=== PATIENT | female | born 2000 | race Caucasian/White ===

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

== ENCOUNTER 2022-01-10 22:23 | Observation (INO) | payer MEDICAID ==
[~2022-01-10] VITALS: Ht 155 cm; Wt 54.5 kg
[~2022-01-10 22:23] MED LIST changes: -DCS100C PO; +DOCU-239 PO
--- NOTE | 2022-01-10 22:58 | ED Abdominal Pain ---
General Chief Complaint: Abdominal/GI Problems Stated Complaint: R SIDE ABD PAIN,TROUBLE URINATING,COUGH Nursing Triage Note: PT AMB TO RM 5 WITH C/O RLQ PAIN THAT RADIATES TO HER BACK AND RIB AREA THAT HAS BEEN GOING ON FOR ABOUT 1 WEEK. PT ALSO STATES SHE HAS BEEN URINATING MORE FREQUENTLY ALSO Source of Information: Patient, Old Records Exam Limitations: No Limitations History of Present Illness Date Seen by Provider: Jan 10, 2022 Time Seen by Provider: 22:28 Initial Comments This 21-year-old young lady presents to the emergency room with right-sided abdominal and flank pain worsening over 7 to 10 days. Pain originated just to the right of the umbilicus and has progressed to encompass all of her right abdomen. She reports urinary frequency without dysuria or change in quality of urine. She states her pain was "13" on a 10 point pain scale earlier today. On exam she has a positive Rovsing sign and involuntary guarding. She denies any fever, nausea, vomiting, or vaginal symptoms. She is not sexually active and has an IUD. She reports constipation earlier in the week and diarrhea today. She reports pain with movement and coughing. She was seen in this ER a month ago and was advised to follow-up with her women's health provider to have her IUD evaluated. She reports following up with Dr. WALKER's office and having a normal assessment of the IUD. She reports having an abnormal unintended weight loss of 35 pounds over the last 6 weeks. She is currently under work-up for this and is expecting results from labs at Dr. WALKER's office next week. She reports lab work-up included thyroid studies. Her primary care doctor is Dr. Sherlyn Perla in [place]. Today she took Tylenol, a muscle relaxer, and smoked marijuana without significant relief. She admits to smoking excessive amounts of marijuana and vaping. Allergies and Home Medications Allergies Coded Allergies: shellfish derived (Verified Allergy, Unknown, Anaphylaxis, 09/25/20) Patient Home Medication List Home Medication List Reviewed: Yes Benzocaine/Menthol (Dermoplast Pain Relieving Motley) 78 Gm Aerosol, 0 ML TP UD PRN for PAIN- SEE INSTRUCTIONS Prescribed by: PILLO WALKER on 09/27/20 0816 Docusate Sodium (Dok) 100 Mg Capsule, 100 MG PO BID PRN for CONSTIPATION-1ST LINE Prescribed by: PILLO WALKER on 09/27/20 0816 Famotidine (Pepcid) 20 Mg Tablet, 20 MG PO DAILY PRN, (Reported) Entered as Reported by: NAM SOTO on 09/25/202214 Hydrocodone Bit/Acetaminophen (HYDROcodone/APAP 5 MG/325 MG TAB) 1 Tab Tab, 1 EA PO Q4H PRN for PAIN-MODERATE (5-7) Prescribed by: PILLO WALKER on 09/27/20 0816 Ibuprofen (Ibu) 600 Mg Tablet, 600 MG PO Q6HR Prescribed by: PILLO WALKER on 09/27/20 0816 Pediatric Multivit Comb. No.49 (Flintstones Gummies) 1 Each Tab.chew, 1 EACH PO DAILY, (Reported) Entered as Reported by: MOSES SPIVEY on 07/17/20 155 Review of Systems Review of Systems Constitutional: see HPI, weight loss EENTM: No Symptoms Reported Respiratory: See HPI, Other (Abdominal pain with cough) Cardiovascular: No Symptoms Reported Gastrointestinal: See HPI Genitourinary: See HPI Musculoskeletal: no symptoms reported Skin: no symptoms reported Psychiatric/Neurological: No Symptoms Reported Endocrine: No Symptoms Reported Hematologic/Lymphatic: No Symptoms Reported Past Dpumlxc-Ilsbbt-Eirbzi Hx Patient Social History Tobacco Use?: No Use of E-Cig and/or Vaping dev: Yes E-Cig or Vaping type used: Nicotine Substance use?: Yes Substance type: Marijuana Substance frequency: Couple times a week Alcohol Use?: No Pt feels they are or have been: No Immunizations Up To Date Influenza Vaccine Up-to-Date: No; Not Current First/Initial COVID19 Vaccinat: 2020 Second COVID19 Vaccination Mesfin: 2020 Seasonal Allergies Seasonal Allergies: No Past Medical History Surgeries: No Respiratory: No Neurological: No : No Reproductive Disorders: No 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 oz. kg; 29.00 BMI Method: General Appearance: WD/WN, no apparent distress HEENT: PERRL/EOMI, normal ENT inspection, other (Oropharynx somewhat dry) Neck: normal inspection Respiratory: lungs clear, normal breath sounds, no respiratory distress, no accessory muscle use Cardiovascular: regular rate, rhythm, no edema, no murmur Gastrointestinal: normal bowel sounds, soft, tenderness (Significant tenderness throughout the right abdomen and positive Rovsing with palpation throughout the left abdomen. 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, no motor/sensory deficits, alert, normal mood/affect, oriented x 3 Skin: normal color, warm/dry Progress/Results/Core Measures Results/Orders Lab Results Laboratory Tests Test 01/10/22 22:45 01/10/22 22:55 Range/Units White Blood Count 13.8 H 4.3-11.0 10^3/uL Red Blood Count 4.50 3.80-5.11 10^6/uL Hemoglobin 12.8 11.5-16.0 g/dL Hematocrit 39 35-52 % Mean Corpuscular Volume 86 80-99 fL Mean Corpuscular Hemoglobin 28 25-34 pg Mean Corpuscular Hemoglobin Concent 33 32-36 g/dL Red Cell Distribution Width 12.4 10.0-14.5 % Platelet Count 385 130-400 10^3/uL Mean Platelet Volume 8.3 L 9.0-12.2 fL Immature Granulocyte % (Auto) 0 % Neutrophils (%) (Auto) 77 H 42-75 % Lymphocytes (%) (Auto) 15 12-44 % Monocytes (%) (Auto) 6 0-12 % Eosinophils (%) (Auto) 2 0-10 % Basophils (%) (Auto) 0 0-10 % Neutrophils # (Auto) 10.6 H 1.8-7.8 10^3/uL Lymphocytes # (Auto) 2.0 1.0-4.0 10^3/uL Monocytes # (Auto) 0.9 0.0-1.0 10^3/uL Eosinophils # (Auto) 0.3 0.0-0.3 10^3/uL Basophils # (Auto) 0.1 0.0-0.1 10^3/uL Immature Granulocyte # (Auto) 0.1 0.0-0.1 10^3/uL Sodium Level 138 135-145 MMOL/L Potassium Level 3.7 3.6-5.0 MMOL/L Chloride Level 102 98-107 MMOL/L Carbon Dioxide Level 24 21-32 MMOL/L Anion Gap 12 5-14 MMOL/L Blood Urea Nitrogen 6 L 7-18 MG/DL Creatinine 0.71 0.60-1.30 MG/DL Estimat Glomerular Filtration Rate 125 BUN/Creatinine Ratio 8 Glucose Level 85 70-105 MG/DL Calcium Level 9.1 8.5-10.1 MG/DL Corrected Calcium 9.0 8.5-10.1 MG/DL Total Bilirubin 0.4 0.1-1.0 MG/DL Aspartate Amino Transf (AST/SGOT) 13 5-34 U/L Alanine Aminotransferase (ALT/SGPT) 8 0-55 U/L Alkaline Phosphatase 68 40-136 U/L C-Reactive Protein High Sensitivity 6.92 H 0.00-0.50 MG/DL Total Protein 7.9 6.4-8.2 GM/DL Albumin 4.1 3.2-4.5 GM/DL Lipase 24 8-78 U/L Serum Test, Qualitative NEGATIVE NEGATIVE Urine Color YELLOW Urine Clarity SL CLOUDY Urine pH 6.0 5-9 Urine Specific [place] 1.025 H 1.016-1.022 Urine Protein NEGATIVE NEGATIVE Urine Glucose (UA) NEGATIVE NEGATIVE Urine Ketones 1+ H NEGATIVE Urine Nitrite NEGATIVE NEGATIVE Urine Bilirubin NEGATIVE NEGATIVE Urine Urobilinogen 1.0 < = 1.0 MG/DL Urine Leukocyte Esterase 2+ H NEGATIVE Urine RBC (Auto) NEGATIVE NEGATIVE Urine RBC RARE /HPF Urine WBC 10-25 H /HPF Urine Squamous Epithelial Cells 2-5 /HPF Urine Crystals NONE /LPF Urine Bacteria FEW H /HPF Urine Casts NONE /LPF Urine Mucus LARGE H /LPF Urine Culture Indicated YES My Orders Orders - CHARY LEYVA MD Ua Culture If Indicated (01/10/22 22:28) Fentanyl Inj (Sublimaze Injection) (01/10/22 23:00) Ed Iv/Invasive Line Start (01/10/22 22:51) Lactated Ringers (Lr 1000 Ml Iv Solution (01/10/22 23:00) Cbc With Automated Diff (01/10/22 22:51) Comprehensive Metabolic Panel (01/10/22 22:51) Hs C Reactive Protein (01/10/22 22:51) Hcg,Qualitative Serum (01/10/22 22:51) Lipase (01/10/22 22:51) Urine Culture (01/10/22 22:55) Ct Abdomen/Pelvis W (01/10/22 23:27) Morphine Injection (Morphine Injection (01/10/22 23:33) Iohexol Injection (Omnipaque 350 Mg/Ml 1 (01/10/22 23:45) Received Contrast (Hold Metformin- Contr (01/10/22 23:45) Sodium Chloride Flush (Catheter Flush Sy (01/10/22 23:45) Ns (Ivpb) (Sodium Chloride 0.9% Ivpb Bag (01/10/22 23:45) Blood Culture (01/11/22 00:53) Vital Signs Adult Sepsis Patie Q15M (01/11/22 00:53) Remove Rings In Anticipation O (01/11/22 00:53) Lactic Acid Analyzer (01/11/22 00:53) Piperacillin Sodium/Tazobactam (Zosyn Vi (01/11/22 01:00) Medications Given in ED Current Medications Medications Dose Ordered Sig/Matt Route Start Time Stop Time Status Last Admin Dose Admin Fentanyl Citrate 50 mcg ONCE ONCE IVP 01/10/22 23:00 01/10/22 23:01 DC 01/10/22 22:59 50 MCG Iohexol 100 ml ONCE ONCE IV 01/10/22 23:45 01/10/22 23:46 DC 01/11/22 00:07 66 ML Lactated Ringer's 1,000 ml @ 0 mls/hr Q0M ONCE IV 01/10/22 23:00 01/10/22 23:01 DC 01/10/22 22:59 1,000 MLS/HR Sodium Chloride 10 ml NEEDED PRN IV 01/10/22 23:45 01/11/22 00:07 10 ML Sodium Chloride 100 ml ONCE ONCE IV 01/10/22 23:45 01/10/22 23:46 DC 01/11/22 00:07 80 ML Vital Signs/I&O 01/10/22 22:39 Temp 36.2 Pulse 102 Resp 16 B/P (MAP) 112/69 (83) 01/11/22 00:00 Intake Total 1000 ml Balance 1000 ml Blood Pressure Mean: 83 Progress Progress Note #1: Time: 22:59 Progress Note Pain is being treated with fentanyl. Patient is being hydrated with a liter of LR. She is demonstrating peritoneal signs on exam and requires thorough work- up. Labs are pending. After labs result, we will discuss imaging options. Progress Note #2: Time: 01:07 Progress Note Patient had brief pain relief after fentanyl but pain quickly rebounded. She is feeling much better after morphine. She was found to have leukocytosis and elevated CRP during the lab evaluation. She also had evidence of urinary tract infection. Although UTI was present, this does not seem to adequately explain the degree of pain she is experiencing throughout the right abdomen. Risks and benefits of CT scan were discussed with the patient. She elected to proceed with CT scan. CT revealed inflammatory changes of the ascending and transverse colon with numerous mesenteric lymph nodes appreciated. The CT report does not explicitly state whether the appendix was visualized. I was unable to definitively visualize the appendix on reviewing the CT scan. However, the inflammatory changes of the colon include the region of the cecum. By my interpretation, I cannot completely rule out appendicitis based on exam and work-up. Case was discussed with Dr. Lemus. We will initiate Zosyn therapy in the ER after blood cultures and lactic acid for treatment of colitis and UTI. He will evaluate the patient with exam and review of CT later today. Plan discussed with patient and she is agreeable. Unintended weight loss remains unexplained at this time. I did ask patient if there was any family history of inflammatory bowel disease. She reports her grandmother had 1 episode of "angry" which included fecal incontinence and severe illness. Beyond that she is unaware of any family history of IBD or other autoimmune problems. Diagnostic Imaging Diagonstic Imaging: CT Plain Films/CT/US/NM/MRI: abdomen, pelvis Comments CT viewed by me and [facility] report reviewed. [facility] report impression reads, "Findings concerning for colitis of the ascending, transverse and descending colon which may be infectious or inflammatory etiologies." Departure Communication (Admissions) Time/Spoke to Admitting Phy: 00:55 Dr. Lemus Impression Primary Impression: Colitis Additional Impressions: Right sided abdominal pain Unintended weight loss Urinary tract infection Qualified Codes: N39.0 - Urinary tract infection, site not specified Disposition: ADMITTED INPATIENT Condition: Stable Admissions Decision to Admit Reason: Admit from ER (General) Decision to Admit/Date: Jan 11, 2022 Time/Decision to Admit Time: 00:55 Departure-Patient Inst. Referrals: SHERLYN PERLA DO (PCP/Family) Primary Care Physician CHARY LEYVA MD Jan 10, 2022 22:58
[2022-01-10] MEDS ORDERED: LACTATED RINGERS 1,000 ML IV ONE (23:00)
[2022-01-10] MEDS ORDERED: fentaNYL INJ 100 MCG/2 ML AMP IVP ONE (23:00)
[2022-01-10 23:04] LABS: BILIRUBIN,URINE NEGATIVE (NEGATIVE); CLARITY,URINE SL CLOUDY; COLOR,URINE YELLOW; GLUCOSE, URINE (UA) NEGATIVE (NEGATIVE); KETONES,URINE 1+ (NEGATIVE); LEUKOCYTE ESTERASE ,URINE 2+ (NEGATIVE); NITRITE,URINE NEGATIVE (NEGATIVE); PROTEIN,URINE NEGATIVE (NEGATIVE)
[2022-01-10 23:09] LABS: BASOPHILS # (AUTO) 0.1 10^3/uL (0.0-0.1); BASOPHILS % (AUTO) 0 % (0-10); EOSINOPHILS # (AUTO) 0.3 10^3/uL (0.0-0.3); EOSINOPHILS % (AUTO) 2 % (0-10); HEMATOCRIT 39 % (35-52); HEMOGLOBIN 12.8 g/dL (11.5-16.0); LYMPHOCYTES % (AUTO) 15 % (12-44); MEAN CORPUSCULAR HEMOGLOBIN 28 pg (25-34); MEAN CORPUSCULAR HGB CONC 33 g/dL (32-36); MEAN CORPUSCULAR VOLUME 86 fL (80-99); MEAN PLATELET VOLUME 8.3 fL (9.0-12.2); MONOCYTES # (AUTO) 0.9 10^3/uL (0.0-1.0); MONOCYTES % (AUTO) 6 % (0-12); NEUTROPHILS # (AUTO) 10.6 10^3/uL (1.8-7.8); NEUTROPHILS % (AUTO) 77 % (42-75); PLATELET COUNT 385 10^3/uL (130-400); WHITE BLOOD COUNT 13.8 10^3/uL (4.3-11.0)
[2022-01-10 23:13] LABS: ALBUMIN 4.1 GM/DL (3.2-4.5); POTASSIUM 3.7 MMOL/L (3.6-5.0)
[2022-01-10 23:14] LABS: CALCIUM 9.1 MG/DL (8.5-10.1)
[2022-01-10 23:14] LABS: BACTERIA,URINE FEW /HPF; RBC,URINE RARE /HPF
[2022-01-10 23:15] LABS: TOTAL PROTEIN 7.9 GM/DL (6.4-8.2)
[2022-01-10 23:17] LABS: BILIRUBIN,TOTAL 0.4 MG/DL (0.1-1.0)
[2022-01-10 23:19] LABS: CREATININE SERUM 0.71 MG/DL (0.60-1.30)
[2022-01-10] MEDS ORDERED: morphine INJ 10 MG/ML 1ML (SYR OR VIAL) IVP STA (23:33)
[2022-01-10] MEDS ORDERED: IOHEXOL 350 MG/ML 100 ML (OMNIPAQUE 350) VIAL IV ONE (23:45)
[2022-01-10] MEDS ORDERED: CATHETER FLUSH 10 ML SYR IV PRN (23:45)
[2022-01-10] MEDS ORDERED: HOLD METFORMIN - RECEIVED CONTRAST 20 ML VIAL IV SCH (23:45)
[2022-01-10] MEDS ORDERED: NS 100 ML (IVPB) BAG IV ONE (23:45)
[2022-01-11] VITALS (7 sets, daily range): BP systolic 89–107; BP diastolic 50–69
[2022-01-11] MEDS ORDERED: PIPERACILLIN SODIUM/TAZOBACTAM 4.5 GM in NS (IVPB) 100 ML IV ONE (01:00)
[2022-01-11] MEDS ORDERED: morphine INJ 10 MG/ML 1ML (SYR OR VIAL) IVP STA (01:32)
[2022-01-11] MEDS ORDERED: LACTATED RINGERS 1,000 ML IV ONE (01:46)
[2022-01-11] MEDS: LACTATED RINGERS 1,000 ML IV SCH ×2 (02:05→12:34)
[2022-01-11] MEDS: morphine INJ 4 MG/ML 1 ML (VIAL/SYRINGE) IV PRN ×9 (03:30→22:19)
[2022-01-11] MEDS: ONDANSETRON 4 MG/2 ML (SDV) Z0FRAN IV PRN ×3 (05:07→21:40)
[2022-01-11] MEDS: PIPERACILLIN SODIUM/TAZOBACTAM 4.5 GM in NS (IVPB) 100 ML IV SCH ×3 (05:14→22:58)
--- NOTE | 2022-01-11 06:27 | Diagnostic Imaging Report ---
PROCEDURE: CT abdomen and pelvis with contrast. TECHNIQUE: Multiple contiguous axial images were obtained through the abdomen and pelvis after administration of intravenous contrast. Auto Exposure Controls were utilized during the CT exam to meet ALARA standards for radiation dose reduction. All CT scans use one or more of the following dose optimizing techniques: automated exposure control, MA and/or KvP adjustment based on patient size and exam type or iterative reconstruction. INDICATION: Right-sided pain. FINDINGS: Small amount of pelvic free fluid as well as free fluid along the right colic gutter. There is trace fluid extending into Morison's pouch. Linear gas in the right lower quadrant directed medially from the lower cecum seen on axial image 119 series 2 is believed to be air within the very poorly visualized but grossly unremarkable appendix. IUD in the place. There is a right adnexal cyst without complexity measuring 2.5 cm. The left adnexa normal. There is no bowel obstruction. Colon's evaluation is substantially limited by lack of its distention. There is a suggestion of some edema and thickening of the miner of the colon most notably at the ascending and transverse segments. No bowel obstruction. No pneumatosis. No free gas. No abscess. The urinary bladder unremarkable. Urinary tracts unobstructed. The gallbladder contracted. No biliary dilatation. Spleen, adrenals and pancreas negative. The lung bases and bony structures nonacute. IMPRESSION: 1. Limited visualization of what appears to be a grossly unremarkable appendix, however that structure admittedly poorly visualized and incompletely seen. 2. Pelvic and right colic gutter free fluid small in volume but greater than typically encountered for physiologic free fluid. 3. Right adnexal cyst presumed the dominant follicle. 4. Equivocal findings for some proximal to mid colitis with no small bowel pathology, obstruction, perforation or abscess. 5. No hepatobiliary or urinary tract pathology. Dictated by: Dictated on workstation # [id number]
[2022-01-11 06:36] LABS: BASOPHILS # (AUTO) 0.1 10^3/uL (0.0-0.1); BASOPHILS % (AUTO) 0 % (0-10); EOSINOPHILS # (AUTO) 0.3 10^3/uL (0.0-0.3); EOSINOPHILS % (AUTO) 2 % (0-10); HEMATOCRIT 33 % (35-52); HEMOGLOBIN 10.9 g/dL (11.5-16.0); LYMPHOCYTES # (AUTO) 2.7 10^3/uL (1.0-4.0); LYMPHOCYTES % (AUTO) 20 % (12-44); MEAN CORPUSCULAR HEMOGLOBIN 28 pg (25-34); MEAN CORPUSCULAR HGB CONC 33 g/dL (32-36); MEAN CORPUSCULAR VOLUME 86 fL (80-99); MEAN PLATELET VOLUME 8.5 fL (9.0-12.2); MONOCYTES % (AUTO) 8 % (0-12); NEUTROPHILS # (AUTO) 9.6 10^3/uL (1.8-7.8); NEUTROPHILS % (AUTO) 70 % (42-75); PLATELET COUNT 306 10^3/uL (130-400); WHITE BLOOD COUNT 13.7 10^3/uL (4.3-11.0)
[2022-01-11 06:51] LABS: ALBUMIN 3.4 GM/DL (3.2-4.5); POTASSIUM 3.2 MMOL/L (3.6-5.0)
[2022-01-11 06:53] LABS: CALCIUM 8.3 MG/DL (8.5-10.1)
[2022-01-11 06:54] LABS: TOTAL PROTEIN 6.5 GM/DL (6.4-8.2)
[2022-01-11 06:56] LABS: BILIRUBIN,TOTAL 0.7 MG/DL (0.1-1.0)
[2022-01-11 06:58] LABS: CREATININE SERUM 0.65 MG/DL (0.60-1.30)
[2022-01-11] MEDS: metroNIDAZOLE 500MG/100ML IVPB 100 ML IV SCH ×2 (13:57→21:40)
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
[2022-01-12] MEDS: morphine INJ 4 MG/ML 1 ML (VIAL/SYRINGE) IV PRN ×6 (01:13→18:58)
[2022-01-12] MEDS: LACTATED RINGERS 1,000 ML IV SCH ×3 (01:13→12:09)
[2022-01-12 03:09] VITALS: BP 96/55
[2022-01-12] MEDS: ONDANSETRON 4 MG/2 ML (SDV) Z0FRAN IV PRN ×3 (04:11→19:38)
[2022-01-12] MEDS: metroNIDAZOLE 500MG/100ML IVPB 100 ML IV SCH ×2 (05:57→13:15)
[2022-01-12 06:00] LABS: HEMATOCRIT 34 % (35-52); HEMOGLOBIN 11.2 g/dL (11.5-16.0); MEAN CORPUSCULAR HEMOGLOBIN 28 pg (25-34); MEAN CORPUSCULAR HGB CONC 33 g/dL (32-36); MEAN CORPUSCULAR VOLUME 86 fL (80-99); MEAN PLATELET VOLUME 8.8 fL (9.0-12.2); PLATELET COUNT 332 10^3/uL (130-400); WHITE BLOOD COUNT 11.2 10^3/uL (4.3-11.0)
[2022-01-12 06:13] LABS: POTASSIUM 3.6 MMOL/L (3.6-5.0)
[2022-01-12 06:14] LABS: CALCIUM 8.4 MG/DL (8.5-10.1)
[2022-01-12 06:19] LABS: CREATININE SERUM 0.65 MG/DL (0.60-1.30)
[2022-01-12] MEDS: PIPERACILLIN SODIUM/TAZOBACTAM 4.5 GM in NS (IVPB) 100 ML IV SCH ×2 (07:05→13:15)
[2022-01-12 07:26] VITALS: BP 99/63
[2022-01-12 11:12] VITALS: BP 104/63
--- NOTE | 2022-01-12 13:22 | Progress Note - Surgery ---
Subjective Date Seen by a Provider: Jan 12, 2022 Time Seen by a Provider: 11:08 Subjective/Events-last exam Patient continued right-sided abdominal pain. Patient has been ambulating in the halls. She states that she is having bowel function. She is been having nausea and vomiting though. She is not keeping fluids down. She is had emesis multiple times. Stating pain is not controlled. Denies fever sweats chills shortness of breath or chest pain at this time. Focused Exam Lactate Level 01/11/22 01:00: Lactic Acid Level 0.53 Objective Exam Vital Signs Date Time Temp Pulse Resp B/P (MAP) Pulse Ox O2 Delivery O2 Flow Rate FiO2 01/12/22 12:55 97 Room Air 01/12/22 11:12 36.8 84 18 104/63 (77) 96 Room Air 01/12/22 08:00 Room Air 01/12/22 07:26 36.8 77 18 99/63 (75) 97 Room Air 01/12/22 03:09 36.1 80 20 96/55 (69) 95 Room Air 01/11/22 23:09 36.9 79 20 89/50 (63) 95 Room Air 01/11/22 20:05 Room Air 01/11/22 19:45 36.9 91 18 91/56 (68) 95 Room Air 01/11/22 15:56 36.7 75 18 107/67 (80) 96 Room Air I & O 01/12/22 07:00 Intake Total 1450 ml Output Total 2000 ml Balance -550 ml Capillary Refill : General Appearance: No Apparent Distress, Thin, Other (Agitated) HEENT: PERRL/EOMI, Normal ENT Inspection Neck: Normal Inspection, Non Tender, Supple Respiratory: Chest Non Tender, No Accessory Muscle Use, No Respiratory Distress Cardiovascular: Regular Rate, Rhythm, No JVD Gastrointestinal: normal bowel sounds, soft, tenderness (Patient tenderness in the right side of her abdomen. No focalized area, pain seems to vary on palpation) Extremity: Normal Capillary Refill, Non Tender, No Calf Tenderness Neurologic/Psychiatric: Alert, Oriented x3, No Motor/Sensory Deficits, Other (Agitated) Skin: Normal Color, Warm/Dry Lymphatic: No Adenopathy Results Lab Laboratory Tests 01/12/22 05:26: White Blood Count 11.2H, Red Blood Count 3.99, Hemoglobin 11.2L, Hematocrit 34L, Mean Corpuscular Volume 86, Mean Corpuscular Hemoglobin 28, Mean Corpuscular Hemoglobin Concent 33, Red Cell Distribution Width 11.9, Platelet Count 332, Mean Platelet Volume 8.8L, Sodium Level 136, Potassium Level 3.6, Chloride Level 102, Carbon Dioxide Level 20L, Anion Gap 14, Blood Urea Nitrogen 5L, Creatinine 0.65, Estimat Glomerular Filtration Rate 129, BUN/Creatinine Ratio 8, Glucose Level 72, Calcium Level 8.4L Microbiology 01/11/22 Blood Culture - Preliminary, Resulted Staph, 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 WBC slightly down continue IV antibiotics. Patient still agitated that she is admitted. She does not think she is going to stay here still. I did discuss I feel that she would most likely benefit from having the IV fluids and IV antibiotics. I do not feel her appendix is the issue due to the timeline. I feel this is more likely related to colitis. I would recommend a colonoscopy to evaluate further once this is healed. Approximately 6-8 weeks after. Repeat labs in the morning. LUIS ALBERTO BEASLEY DO Jan 12, 2022 13:21
[2022-01-12 15:26] VITALS: BP 103/66
[2022-01-12 19:04] VITALS: BP 96/58
== END 2022-01-12 21:13 | disposition left against medical advice (07) ==
LOC: EDUNIT# 22:23 → ER 22:25 → 4TH 01-11 01:06
PROVIDERS: ADMIT Surgery; ATTEND Surgery
DX: K52.9 Noninfective gastroenteritis and colitis, unspecified (principal); N39.0 Urinary tract infection, site not specified; R63.4 Abnormal weight loss
CPT/HCPCS: 36415; 74177; 80048; 80053; 81000; 83605; 83690; 84703; 85025; 85027; 85652; 86141; 87040; 87077; 87088; 94760; 96361; 96365; 96366; 96375; 96376; G0378

== ENCOUNTER 2022-04-16 05:43 | Emergency (ER) | payer MEDICAID ==
[~2022-04-16] VITALS: Ht 155 cm; Wt 55.0 kg
[2022-04-16] MEDS ORDERED: KETOROLAC 30 MG/ML VIAL IVP STA (06:23)
[2022-04-16] MEDS ORDERED: HYDROcodone/APAP 5 MG/325 MG (LORTAB) TAB PO ONE (06:30)
[2022-04-16 06:33] LABS: BILIRUBIN,URINE NEGATIVE (NEGATIVE); CLARITY,URINE CLEAR; COLOR,URINE DARK YELLOW; GLUCOSE, URINE (UA) NEGATIVE (NEGATIVE); KETONES,URINE NEGATIVE (NEGATIVE); LEUKOCYTE ESTERASE ,URINE NEGATIVE (NEGATIVE); NITRITE,URINE NEGATIVE (NEGATIVE); PH,URINE 5.5 (5-9); PROTEIN,URINE NEGATIVE (NEGATIVE)
--- NOTE | 2022-04-16 06:39 | ED GU-Female ---
General Chief Complaint: - Reproductive Stated Complaint: OVARIAN CYSTS,ANXIETY ATTACK Nursing Triage Note: C/O SHARP INTERMITTANT PAIN TO RIGHT LOWER ABDOMEN STARTED DURING INTERCOURSE. Source: patient Exam Limitations: no limitations History of Present Illness Date Seen by Provider: Apr 16, 2022 Time Seen by Provider: 06:16 Initial Comments Here with complaint of right lower quadrant pain that started about 4 AM during sexual activity. He states that it was fairly significant cramping. She has had similar pain previously and had work-up for that and was thought to have ovarian cyst. She did try a hot shower which helped a little bit and she also smokes some marijuana which helped a little bit but states that the pain was too much for her to not get it checked out. Also reports some anxiety and itching in her skin that she thinks may be hives related to anxiety which is also better. No report of fever, chills, nausea, vomiting or diarrhea. Does have intermittent constipation. Denies vaginal discharge outside of normal or bleeding. Timing/Duration: this morning Severity/Quality: moderate Location: RLQ Radiation: none Activities at Onset: sexual activity Prior Genitourinary Problems: similar symptoms Sexual [place] History: single partner Modifying Factors: Improves With Other (Hot showers, marijuana and time seem to have helped) Associated Symptoms: abdominal pain; No dysuria, No fever/chills, No lower back pain, No nausea/vomiting, No urinary frequency Allergies and Home Medications Allergies Coded Allergies: shellfish derived (Verified Allergy, Unknown, Anaphylaxis, 09/25/20) Patient Home Medication List Home Medication List Reviewed: Yes No Active Prescriptions or Reported Meds Review of Systems Review of Systems Constitutional: No chills, No fever EENTM: no symptoms reported Cardiovascular: No chest pain, No edema, No palpitations Gastrointestinal: abdominal pain; No nausea, No vomiting Genitourinary: denies flank pain, denies hematuria; pain : No Musculoskeletal: No back pain, No muscle pain Skin: no symptoms reported Psychiatric/Neurological: Anxiety; Denies Weakness All Other Systemes Reviewed Negative Unless Noted: Yes Past Bvlflvd-Eutesz-Dowrtu Hx Patient Social History Tobacco Use?: Yes Substance use?: Yes Substance type: Marijuana Alcohol Use?: No Pt feels they are or have been: No Immunizations Up To Date First/Initial COVID19 Vaccinat: 2020 Second COVID19 Vaccination Mesfin: 2020 Third COVID19 Vaccination Date: 2020 Seasonal Allergies Seasonal Allergies: No Past Medical History Surgery/Hospitalization HX: OVARIAN CYST Surgeries: No Respiratory: No Neurological: No Reproductive Disorders: No 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 oz. kg; 22.00 BMI Method: General Appearance: WD/WN, no apparent distress Cardiovascular: regular rate, rhythm, no murmur Respiratory: lungs clear, normal breath sounds Gastrointestinal: soft, tenderness (Right lower quadrant suprapubic area) Back: normal inspection, no CVA tenderness, no vertebral tenderness Extremities: non-tender, normal inspection Neurologic/Psychiatric: alert, oriented x 3 Skin: normal color, warm/dry Progress/Results/Core Measures Suspected Sepsis SIRS Temperature: Pulse: 86 Respiratory Rate: 18 Laboratory Tests 04/16/22 06:31: White Blood Count 8.5 Blood Pressure 118 /73 Mean: 88 Laboratory Tests 04/16/22 06:31: Creatinine 0.62, Platelet Count 251, Total Bilirubin 0.3 Results/Orders Lab Results Laboratory Tests Test 04/16/22 06:08 04/16/22 06:31 Range/Units Urine Test NEGATIVE NEGATIVE White Blood Count 8.5 4.3-11.0 10^3/uL Red Blood Count 4.50 3.80-5.11 10^6/uL Hemoglobin 12.9 11.5-16.0 g/dL Hematocrit 38 35-52 % Mean Corpuscular Volume 85 80-99 fL Mean Corpuscular Hemoglobin 29 25-34 pg Mean Corpuscular Hemoglobin Concent 34 32-36 g/dL Red Cell Distribution Width 12.9 10.0-14.5 % Platelet Count 251 130-400 10^3/uL Mean Platelet Volume 8.6 L 9.0-12.2 fL Immature Granulocyte % (Auto) 0 % Neutrophils (%) (Auto) 55 42-75 % Lymphocytes (%) (Auto) 34 12-44 % Monocytes (%) (Auto) 5 0-12 % Eosinophils (%) (Auto) 5 0-10 % Basophils (%) (Auto) 1 0-10 % Neutrophils # (Auto) 4.7 1.8-7.8 10^3/uL Lymphocytes # (Auto) 2.9 1.0-4.0 10^3/uL Monocytes # (Auto) 0.4 0.0-1.0 10^3/uL Eosinophils # (Auto) 0.4 H 0.0-0.3 10^3/uL Basophils # (Auto) 0.1 0.0-0.1 10^3/uL Immature Granulocyte # (Auto) 0.0 0.0-0.1 10^3/uL Sodium Level 137 135-145 MMOL/L Potassium Level 3.7 3.6-5.0 MMOL/L Chloride Level 106 98-107 MMOL/L Carbon Dioxide Level 21 21-32 MMOL/L Anion Gap 10 5-14 MMOL/L Blood Urea Nitrogen 10 7-18 MG/DL Creatinine 0.62 0.60-1.30 MG/DL Estimat Glomerular Filtration Rate 131 BUN/Creatinine Ratio 16 Glucose Level 85 70-105 MG/DL Calcium Level 8.5 8.5-10.1 MG/DL Corrected Calcium 8.7 8.5-10.1 MG/DL Total Bilirubin 0.3 0.1-1.0 MG/DL Aspartate Amino Transf (AST/SGOT) 16 5-34 U/L Alanine Aminotransferase (ALT/SGPT) 9 0-55 U/L Alkaline Phosphatase 54 40-136 U/L Total Protein 7.1 6.4-8.2 GM/DL Albumin 3.8 3.2-4.5 GM/DL My Orders Orders - CÉSAR DOTY MD Cbc With Automated Diff (04/16/22 06:23) Comprehensive Metabolic Panel (04/16/22 06:23) Hs C Reactive Protein (04/16/22 06:23) Hcg,Qualitative Urine (04/16/22 06:23) Ua Culture If Indicated (04/16/22 06:23) Ed Iv/Invasive Line Start (04/16/22 06:23) Us Pelvic (Non Ob)52122 (04/16/22 06:23) Hydrocodone/Apap 5/325 Tablet (Lortab 5 (04/16/22 06:30) Ketorolac Injection (Toradol Injection) (04/16/22 06:23) Medications Given in ED Current Medications Medications Dose Ordered Sig/Matt Route Start Time Stop Time Status Last Admin Dose Admin Acetaminophen/ Hydrocodone Bitart 1 ea ONCE ONCE PO 04/16/22 06:30 04/16/22 06:31 DC 04/16/22 06:35 1 EA Vital Signs/I&O 04/16/22 04/16/22 04/16/22 05:59 06:35 06:35 Temp 36.9 36.9 36.9 Pulse 86 Resp 18 B/P (MAP) 118/73 (88) Pulse Ox 98 O2 Delivery Room Air Capillary Refill : Less Than 3 Seconds Blood Pressure Mean: 88 Progress Note : Progress Note Seen and evaluated. IV, labs, UA and UCG ordered. Hydrocodone 5/325 1 tab p.o. given. Toradol 30 mg IV. Ultrasound pelvis ordered and we will wait until they arrived at 0730 monitor patient. 0704: Patient states that she is feeling better and actually would like to go. 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 This seems reasonable given that she is feeling better. Labs reviewed and show no significant abnormality currently. Pending UA. Patient states she will wait for that but then would like to go. Departure Impression Primary Impression: Right sided abdominal pain Disposition: 01 HOME, SELF-CARE Condition: Stable Departure-Patient Inst. Decision time for Depature: 07:06 Referrals: PILLO WALKER RUSSELL L DO (PCP) Primary Care Physician Patient Instructions: Abdominal Pain, Adult ED Add. Discharge Instructions: All discharge instructions reviewed with patient and/or family. Voiced understanding. You have had an incomplete evaluation as ultrasound was not done today per your request. It is important that you follow-up with Dr. WALKER or your doctor for recheck and further evaluation and for ultrasound if indicated. You may continue [id number] medicine such as Tylenol/acetaminophen and/or ibuprofen as needed for pain per package directions. Drink plenty of fluids. Return for worse pain, fever, vomiting, weakness, breathing problems or other concerns as needed. Scripts No Active Prescriptions or Reported Meds CÉSAR DOTY MD Apr 16, 2022 06:39
[2022-04-16 06:44] LABS: BASOPHILS # (AUTO) 0.1 10^3/uL (0.0-0.1); BASOPHILS % (AUTO) 1 % (0-10); EOSINOPHILS # (AUTO) 0.4 10^3/uL (0.0-0.3); EOSINOPHILS % (AUTO) 5 % (0-10); HEMATOCRIT 38 % (35-52); HEMOGLOBIN 12.9 g/dL (11.5-16.0); LYMPHOCYTES # (AUTO) 2.9 10^3/uL (1.0-4.0); LYMPHOCYTES % (AUTO) 34 % (12-44); MEAN CORPUSCULAR HEMOGLOBIN 29 pg (25-34); MEAN CORPUSCULAR HGB CONC 34 g/dL (32-36); MEAN CORPUSCULAR VOLUME 85 fL (80-99); MEAN PLATELET VOLUME 8.6 fL (9.0-12.2); MONOCYTES # (AUTO) 0.4 10^3/uL (0.0-1.0); MONOCYTES % (AUTO) 5 % (0-12); NEUTROPHILS # (AUTO) 4.7 10^3/uL (1.8-7.8); NEUTROPHILS % (AUTO) 55 % (42-75); PLATELET COUNT 251 10^3/uL (130-400); WHITE BLOOD COUNT 8.5 10^3/uL (4.3-11.0)
[2022-04-16 06:50] LABS: ALBUMIN 3.8 GM/DL (3.2-4.5); POTASSIUM 3.7 MMOL/L (3.6-5.0)
[2022-04-16 06:51] LABS: CALCIUM 8.5 MG/DL (8.5-10.1)
[2022-04-16 06:53] LABS: TOTAL PROTEIN 7.1 GM/DL (6.4-8.2)
[2022-04-16 06:54] LABS: BILIRUBIN,TOTAL 0.3 MG/DL (0.1-1.0)
[2022-04-16 06:56] LABS: CREATININE SERUM 0.62 MG/DL (0.60-1.30)
[2022-04-16 07:23] LABS: BACTERIA,URINE NEGATIVE /HPF; SQUAMOUS EPITHELIAL CELL,UR 0-2 /HPF
[2022-04-16 07:29] VITALS: BP 113/64
== END 2022-04-16 07:30 | disposition home or self-care (01) ==
LOC: EDUNIT# 05:43 → ER 05:46
DX: R10.31 Right lower quadrant pain (principal); Z72.0 Tobacco use
CPT/HCPCS: 36415; 80053; 81000; 84703; 85025; 86141

== ENCOUNTER 2023-06-06 20:52 | Emergency (ER) | payer MEDICAID ==
[~2023-06-06] VITALS: Ht 155 cm; Wt 55.0 kg
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
--- NOTE | 2023-06-06 21:45 | Diagnostic Imaging Report ---
EXAMINATION: CT head and CT cervical spine without contrast. TECHNIQUE: Multiple contiguous axial images were obtained through the brain and cervical spine without the use of intravenous contrast. Sagittal and coronal reformations through the cervical spine were then performed. All CT scans use one or more of the following dose optimizing techniques: automated exposure control, MA and/or KvP adjustment based on patient size and exam type or iterative reconstruction. HISTORY: Head and neck pain after injury. COMPARISON: None available. FINDINGS: HEAD: The ventricles and sulci are normal. No abnormal attenuation of brain parenchyma is present. No acute intracranial hemorrhage or abnormal extra-axial fluid collections are present. No hyperdense vessel. The calvarium is intact. The mastoid air cells are clear. The visualized paranasal sinuses are clear. The orbits are normal. C-SPINE: Vertebral body height and alignment are preserved. No acute fracture, dislocation, or destructive osseous process. No significant facet hypertrophy. No significant central canal or neuroforaminal stenosis. The paraspinous soft tissues are normal. The visualized thyroid gland is normal. The visualized lung apices are normal. IMPRESSION: 1. No acute intracranial abnormality. 2. No acute osseous abnormality of the cervical spine. Dictated by: Dictated on workstation # [id number]
--- NOTE | 2023-06-06 21:46 | Diagnostic Imaging Report ---
EXAMINATION: CT thoracic and lumbar spine without contrast. TECHNIQUE: Multiple contiguous axial images were obtained through the thoracic and lumbar spine without the use of intravenous contrast. Sagittal and coronal reformations were then performed. All CT scans use one or more of the following dose optimizing techniques: automated exposure control, MA and/or KvP adjustment based on patient size and exam type or iterative reconstruction. HISTORY: Back pain after injury. COMPARISON: None available. FINDINGS: There is grade 1 anterolisthesis of L5 on S1 secondary to bilateral L5 pars defects. Vertebral body heights are normal and no fracture is seen. No significant facet hypertrophy or perched facets. Disk heights are normal. There is no spinal canal stenosis. Limited views of the soft tissues show no abnormality. The aorta is normal. IMPRESSION: No acute osseous abnormality of the thoracic or lumbar spine. Dictated by: Dictated on workstation # [id number]
--- NOTE | 2023-06-06 21:47 | Diagnostic Imaging Report ---
EXAMINATION: Chest, 1 view. HISTORY: Chest pain. COMPARISON: None available. FINDINGS: Heart size and pulmonary vasculature are normal. The lungs are clear without consolidation, pleural effusion, or pneumothorax. The osseous structures are intact. IMPRESSION: No acute radiographic abnormality in the chest. Dictated by: Dictated on workstation # [id number]
--- NOTE | 2023-06-06 21:48 | Diagnostic Imaging Report ---
EXAMINATION: Pelvis radiograph. EXAM DATE: 06/06/2023 9:41 PM. COMPARISON: None available. HISTORY: Pelvic pain. TECHNIQUE: 1 view. FINDINGS: There is no acute fracture, dislocation, or destructive osseous process. The joint spaces are normal. The soft tissues are normal. IMPRESSION: No acute osseous abnormality. Dictated by: Dictated on workstation # [id number]
--- NOTE | 2023-06-06 21:48 | Diagnostic Imaging Report ---
EXAMINATION: Right knee radiographs. EXAM DATE: 06/06/2023 9:41 PM. COMPARISON: None available. HISTORY: Knee pain. TECHNIQUE: 3 views. FINDINGS: There is no acute fracture, dislocation, or destructive osseous process. The joint spaces are normal. The soft tissues are normal. IMPRESSION: No acute osseous abnormality. Dictated by: Dictated on workstation # [id number]
[2023-06-06] MEDS ORDERED: RX-NAPROXEN (NAPROSYN) 250 MG TAB PPK#4 PO STA (21:53)
[2023-06-06] MEDS ORDERED: NAPR500T8 PO (21:53)
[2023-06-06] MEDS ORDERED: CYCL10TA25 PO (21:53)
[2023-06-06] MEDS ORDERED: RX-CYCLOBENZAPRINE 10 MG (FLEXERIL) TAB PPK#3 PO STA (21:53)
[2023-06-06] MEDS ORDERED: RX-ONDANSETRON 4 MG ODT (ZOFRAN) PPK #4 PO STA (21:58)
[2023-06-06] MEDS ORDERED: ONDA4TAB11 PO (21:59)
[2023-06-06] MEDS ORDERED: NAPROXEN 250 MG TABLET PO ONE (22:00)
[2023-06-06 22:09] VITALS: BP 125/72
== END 2023-06-06 22:10 | disposition home or self-care (01) ==
LOC: EDUNIT# 20:52 → ER 20:53
DX: M54.2 Cervicalgia (principal); M54.9 Dorsalgia, unspecified; M25.561 Pain in right knee; R51.9 Headache, unspecified; V40.5XXA Car driver injured in collision with pedestrian or animal in traffic accident, initial encounter; Y92.410 Unspecified street and highway as the place of occurrence of the external cause
CPT/HCPCS: 70450; 71045; 72125; 72128; 72131; 72170; 73562; 99283